=== PATIENT | female | born 1990 | race African-American/Black ===

== ENCOUNTER 2016-07-09 05:37 | Inpatient (IN) | payer MEDICAID ==
[2016-07-09] VITALS (45 sets, daily range): BP systolic 119–153; BP diastolic 70–109; PULSE 62–106; RESP 16–18; TEMP 97.8–98.3; O2SAT 99–100
[~2016-07-09 05:37] MED LIST: DOXY100T PO
[2016-07-09 06:38] LABS: AUTOMATED NEUTROPHIL # 9.4 TH/MM3 (1.8-7.7); BASOPHIL % 0.3 % (0.0-2.0); EOSINOPHIL # 0.3 TH/MM3 (0-0.4); HEMATOCRIT 36.8 % (35.0-46.0); HEMO FLAGS DIFF FINAL; LYMPH % 18.1 % (9.0-44.0); LYMPHOCYTE # 2.4 TH/MM3 (1.0-4.8); MEAN CELL VOLUME 88.2 FL (80.0-100.0); MEAN CORPUSCULAR HEMOGLOBIN 29.5 PG (27.0-34.0); MEAN CORPUSCULAR HGB CONC 33.4 % (32.0-36.0); MONO % 8.7 % (0.0-8.0); NEUT % 70.9 % (16.0-70.0); PLATELET COUNT 192 TH/MM3 (150-450); RED BLOOD COUNT 4.18 MIL/MM3 (4.00-5.30); RED CELL DISTRIBUTION WIDTH 15.5 % (11.6-17.2); WHITE BLOOD COUNT 13.3 TH/MM3 (4.0-11.0)
[2016-07-09 06:49] LABS: BLOOD, URINE MOD (NEG); GLUCOSE,URINE NEG (NEG); KETONE, URINE NEG (NEG); MUCUS URINE FEW /lpf (OCC); NITRITE,URINE NEG (NEG); SQUAMOUS EPITHELIAL CELL URINE 2 /hpf (0-5); URINE COLOR YELLOW (YELLW/STRAW)
[2016-07-09 06:51] LABS: COMMENT (UR) CULT NOT INDICATED; CULTURE IF INDICATED CULT NOT INDICATED
[2016-07-09 07:02] LABS: AMPHETAMINE, URINE NEG (NEG); BARBITURATES, URINE NEG (NEG); COCAINE, URINE NEG (NEG)
[2016-07-09 07:14] LABS: RUBELLA IGG ANTIBODY 110.6 IU/mL (10.0-500.0); RUBELLA STATUS IMMUNE (IMMUNE)
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
[2016-07-09] MEDS ORDERED: LACTATED RINGER'S 1000 ML INJ 1,000 ML IV PRN (08:25)
[2016-07-09] MEDS ORDERED: OXYTOCIN 30 UNITS-500ML PREMIX 500 ML IV ONE ×2 (08:30→19:15)
[2016-07-09] MEDS ORDERED: SODIUM CHLORID 0.9% 500 ML INJ 500 ML IV PRN (08:30)
[2016-07-09] MEDS ORDERED: LIDOCAINE HCL 1% 50 ML VIAL I-DERMAL PRN (08:30)
[2016-07-09] MEDS ORDERED: CITRIC ACID-SODIUM CITRATE LIQ 30 ML UDC PO SCH (08:30)
[2016-07-09] MEDS ORDERED: LIDOCAINE HCL 1% 50 ML VIAL INFIL PRN (08:30)
[2016-07-09] MEDS ORDERED: MINERAL OIL 10 ML VIAL TOPICAL PRN (08:30)
[2016-07-09 08:36] LABS: CHLAMYDIA PCR NOT DETECTED (NOT DETECT); NEISSERIA PCR NOT DETECTED (NOT DETECT)
[2016-07-09] MEDS ORDERED: SODIUM CHLOR 0.9% 1000 ML INJ 1,000 ML IV PRN (08:45)
[2016-07-09] MEDS: LACTATED RINGER'S 1000 ML INJ 1,000 ML IV SCH ×2 (10:50→14:16)
[2016-07-09] MEDS ORDERED: AMPICILLIN INJ 1,000 MG in SODIUM CHLORIDE 0.9% INJ 100 ML IV SCH (12:00)
--- NOTE | 2016-07-09 12:37 | PD.OB.ANTE ---
Subjective Interval History 25 yo @ 35w2d by today's US. No care this . Patient reportedly had an US while in intermediate earlier in the , but has no information or documentation. She presented early this AM with c/o spotting/ vaginal bleeding. She was found to be 4-5cm dilated, membranes intact. Only occasional UC noted. FHT was reassuring. Upon admission for PTL, a beside US was performed that noted absence of brain matter and hydrocephaly. Otherwise a normal US. A formal US was obtained from Diagnostics. 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 3VC, anterior placenta without previa. EFW 2655g, BPP 8/8 with MAL 15.2cm. 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 Bradford. 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 She had a normal , [id number] of 8/9. The baby lived 6 months after being transferred to Hospice. She was counselled this morning about the findings. The patient does not desire the /baby. She desired but did not obtain a . She was planning on giving this child up for adoption or to the FOB, whom is not involved at this time. She expresses desire to not have resuscitation or c- section for delivery. A formal viewing, reading, diagnosis has not been done at this time. NICU was consulted and the case d/w TYRESE Joaquin from [facility] in [place] via the phone. A MRI would be needed. At this time we do not have a definitive diagnosis and will need to proceed with standard /labor care. She is not in labor at this time with minimal cervical change management consultant 8 hours, and rare UC. There has been an occasional variable but otherwise CAT I tracing. We will continue monitoring for active labor at this time, but obviously at 35 weeks she will not be induced/augmented unless indicated. She will have continuous monitoring in labor and a recommended as indicated. Full resuscitation will be indicated at the time of delivery and NICU will be present. The patient at this time has refused transfer to [facility]. Antepartum ROS: Reports: Vaginal bleeding (blood tinged mucous only noted.), movement normal, Denies: New complaints, Loss of fluid, Contractions (denies contractions at this time.) Objective Vital Signs Vital Signs Date Time Temp Pulse Resp B/P Pulse Ox O2 Delivery O2 Flow Rate FiO2 07/09/16 11:40 71 125/70 07/09/16 11:39 18 07/09/16 11:23 97.9 07/09/16 10:47 63 133/74 07/09/16 10:21 16 07/09/16 10:19 64 133/74 07/09/16 09:12 62 119/81 07/09/16 09:11 18 07/09/16 09:09 97.8 Lab & Micro Results Test 07/09/16 06:00 White Blood Count 13.3 TH/MM3 Red Blood Count 4.18 MIL/MM3 Hemoglobin 12.3 GM/DL Hematocrit 36.8 % Mean Corpuscular Volume 88.2 FL Mean Corpuscular Hemoglobin 29.5 PG Mean Corpuscular Hemoglobin 33.4 % Concent Red Cell Distribution Width 15.5 % Platelet Count 192 TH/MM3 Mean Platelet Volume 11.7 FL Neutrophils (%) (Auto) 70.9 % Lymphocytes (%) (Auto) 18.1 % Monocytes (%) (Auto) 8.7 % Eosinophils (%) (Auto) 2.0 % Basophils (%) (Auto) 0.3 % Neutrophils # (Auto) 9.4 TH/MM3 Lymphocytes # (Auto) 2.4 TH/MM3 Monocytes # (Auto) 1.2 TH/MM3 Eosinophils # (Auto) 0.3 TH/MM3 Basophils # (Auto) 0.0 TH/MM3 CBC Comment DIFF FINAL Differential Comment Urine Color YELLOW Urine Turbidity CLEAR Urine pH 6.0 Urine Specific [place] 1.027 Urine Protein TRACE mg/dL Urine Glucose (UA) NEG mg/dL Urine Ketones NEG mg/dL Urine Occult Blood MOD Urine Nitrite NEG Urine Bilirubin NEG Urine Urobilinogen LESS THAN 2.0 MG/DL Urine Leukocyte Esterase SMALL Urine RBC 3 /hpf Urine WBC 3 /hpf Urine Squamous Epithelial 2 /hpf Cells Urine Mucus FEW /lpf Microscopic Urinalysis Comment CULT NOT INDICATED Urine Opiates Screen NEG Urine Barbiturates Screen NEG Urine Amphetamines Screen NEG Urine Benzodiazepines Screen NEG Urine Cocaine Screen NEG Urine Cannabinoids Screen NEG Chlamydia trachomatis DNA NOT DETECTED (PCR) HIV (1&2) Antibody NEGATIVE Neisseria gonorrhoeae DNA NOT DETECTED (PCR) Rubella Immunity Screen IMMUNE Rubella Antibody, Quantitative 110.6 IU/mL Group B Streptococcus (PCR) NEGATIVE Blood Type O POSITIVE Band and Hold Date/Time Procedure Status Source Growth 07/09/16 06:00 Group B Streptococcus Screen Received Genital Genital Region Pending 07/09/16 06:00 Cancelled Genital Vaginal Physical Exam GENERAL: Well-nourished, well-developed patient. CARDIOVASCULAR: Regular rate RESPIRATORY: . No accessory muscle use. ABDOMEN/GI: Abdomen soft, non-tender. Gravid GENITOURINARY: External Genitalia: intact and normal in appearance SVE 5/80/-2, intact, cephalic minimal change from Dr. Luther exam earlier at 6 : 45am FHT's: Baseline: 135 Reactive: +accelerations Variability: mod Decels: occasional variable with return to baseline. TOCO: UC irregular q 8-30 min EXTREMITIES: No cyanosis or edema, non-tender, without signs of DVT. Assessment and Plan Assessment and Plan 35w2d 1. PTL Minimal cervical change management consultant the past 8 hours with only irregular/occasional UC. Continue as antepartum patient with PTL. GBS negative. 2. No care labs WNL at this time 3. 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 Discussed case with Dr. Gracia from [facility] brain MRI ordered, D/w Dr. Jax Ferreira from radiology (via Dr. Mitchell) NICU consulted and counseled patient on resuscitation at time of delivery when in labor Patient refuses transfer to [facility] for any further care/management. 4. Undesired /child Will need psychiatric social worker supervisor consultation in AM Michelle Crawford MD Jul 09, 2016 12:37
--- NOTE | 2016-07-09 14:36 | PD.LABORPN ---
Subjective Subjective Patient returned from MRI. Awaiting results. Patient reports increased in UC. Objective Vital Signs Vital Signs Date Time Temp Pulse Resp B/P Pulse Ox O2 Delivery O2 Flow Rate FiO2 07/09/16 12:55 68 07/09/16 12:54 18 07/09/16 12:47 133/89 07/09/16 11:23 97.9 Objective Pelvic Exam: SVE 5-6/80-90%/-2 per RN TOCO: UC irregular q 4-8 min FHT's: Baseline: [-] Reactive: +accelerations to 160 Variability: mod Decels: occasional variable with UC Assessment/Plan Assessment and Plan 35w2d PTL - increased in UC, minimal change, some effacement. Will manage expectantly GBS negative Patient will refuse a for delivery She does not desire resuscitation efforts, NICU will be present for delivery and at this time will resuscitate initially. Awaiting MRI results of brain for diagnostic evaluation. 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 Also prior child with holoprosencephaly who in Hospice after 6mo. Patient was told is was genetic. Michelle Crawford MD Jul 09, 2016 14:36
[2016-07-09] MEDS ORDERED: fentaNYL 2MCG-BUPIV 0.125% INJ 100 ML ONE (14:38)
[2016-07-09] MEDS ORDERED: ePHEDrine/NS 25 MG/5 ML SYR ONE (14:38)
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
[2016-07-09] MEDS ORDERED: ONDANSETRON ODT 4 MG TAB PO PRN (15:30)
[2016-07-09] MEDS ORDERED: ZOLPIDEM TARTRATE 5 MG TAB PO PRN (15:30)
[2016-07-09] MEDS ORDERED: DOCUSATE SODIUM 50 MG/SENNA 8.6 MG TAB PO PRN (15:30)
[2016-07-09] MEDS ORDERED: WITCH HAZEL 50%/GLYCERIN 12.5% 40 PAD JAR TOPICAL PRN (15:30)
[2016-07-09] MEDS ORDERED: ALUMINUM/MAGNESIUM/SIMETH 30 ML CUP PO PRN (15:30)
[2016-07-09] MEDS ORDERED: BENZOCAINE 20% TOPICAL SPRAY 60 ML CAN TOPICAL PRN (15:30)
[2016-07-09] MEDS ORDERED: SODIUM CHLORIDE 0.9% FLUSH 10 ML FLUSH IV FLUSH PRN (15:30)
[2016-07-09] MEDS ORDERED: ACETAMINOPHEN 325 MG TAB PO PRN (15:30)
[2016-07-09] MEDS ORDERED: oxyCODONE/ACETAMINOPHEN 5 MG/325 MG TAB PO PRN (15:30)
--- NOTE | 2016-07-09 15:48 | PD.OB.DELI ---
Delivery Date: Jul 09, 2016 Anesthesia: None Episiotomy: None Vaginal Delivery: Normal Presentation: Occiput anterior Nuchal Cord: None : Female Placenta: Spontaneous delivery Laceration: No lacerations (25 yo @ 35w2d presented with PTL. No care. 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 Prior delivery with same diagnosis. over intact perinium. NICU present. Placenta spontaneous and intact, small with some calcifications. Sent to pathology. EBL 150ml.) Michelle Crawford MD Jul 09, 2016 15:48
[2016-07-09] MEDS ORDERED: MEASLES, MUMPS, RUBELLA VACCINE 0.5 ML VIAL SQ ONE (16:00)
[2016-07-09] MEDS ORDERED: DIPHTH/TETANUS/ACEL PERTUSSIS (BOOSTER) 0.5 ML VIAL/PFS IM ONE (16:00)
[2016-07-09] MEDS: IBUPROFEN 600 MG TAB PO PRN (16:03)
[2016-07-09] MEDS: oxyCODONE/ACETAMINOPHEN 5 MG/325 MG TAB PO PRN ×2 (16:56→20:56)
[2016-07-09] MEDS ORDERED: OXYTOCIN 30 UNITS-500ML PREMIX 500 ML ONE (18:24)
[2016-07-09] MEDS ORDERED: SODIUM CHLORIDE 0.9% FLUSH 10 ML FLUSH IV FLUSH SCH (21:00)
[2016-07-10] VITALS (9 sets, daily range): BP systolic 128–144; BP diastolic 69–111; PULSE 66–80; RESP 17–18; TEMP 98–98.3
--- NOTE | 2016-07-10 09:22 | HHI.OB ---
Subjective Post Day: 1 Remarks Ms. Weiner is a 25 yo who is PPD 1 from of with holoprosencephaly (07/09 at 1513). Patient with persistent SBP in 140's; otherwise stable VS. Patient awoken from sleep; her responses were limited: reports some vaginal bleeding. Patient does not report significant pain. Unclear whether patient has yet ambulated. Objective Vitals/I&O Vital Signs Date Time Temp Pulse Resp B/P Pulse Ox O2 Delivery O2 Flow Rate FiO2 07/10/16 08:53 66 144/83 07/10/16 08:53 17 07/10/16 04:30 98.3 18 07/10/16 04:00 98.3 07/10/16 04:00 67 18 128/81 07/10/16 03:59 78 144/111 07/09/16 23:21 98.3 18 07/09/16 23:18 71 142/79 07/09/16 19:45 18 07/09/16 19:45 70 143/75 07/09/16 18:38 78 153/85 07/09/16 18:00 75 130/73 07/09/16 18:00 98.0 07/09/16 17:59 16 07/09/16 17:04 18 07/09/16 17:01 90 138/88 07/09/16 16:56 87 139/82 07/09/16 16:50 18 144/91 07/09/16 16:45 72 07/09/16 16:40 70 18 144/89 07/09/16 16:30 18 07/09/16 16:22 67 139/83 07/09/16 16:16 75 136/92 07/09/16 16:15 97.9 07/09/16 16:15 18 07/09/16 16:00 18 07/09/16 16:00 74 133/84 07/09/16 15:45 69 144/79 07/09/16 15:45 18 07/09/16 15:30 82 151/81 07/09/16 15:00 106 07/09/16 15:00 100 07/09/16 14:55 100 07/09/16 14:55 70 07/09/16 14:50 88 07/09/16 14:50 99 07/09/16 14:46 68 123/109 07/09/16 14:45 76 07/09/16 14:45 100 07/09/16 12:55 68 07/09/16 12:54 18 07/09/16 12:50 80 07/09/16 12:47 86 133/89 07/09/16 12:45 76 07/09/16 12:35 69 07/09/16 12:30 64 07/09/16 12:25 68 07/09/16 12:20 67 07/09/16 12:15 70 07/09/16 12:10 72 07/09/16 12:05 71 07/09/16 11:40 71 125/70 07/09/16 11:39 18 07/09/16 11:23 97.9 07/09/16 10:47 63 133/74 07/09/16 10:21 16 07/09/16 10:19 64 133/74 Objective Remarks GENERAL: Well-nourished, well-developed patient. CARDIOVASCULAR: Regular rate and rhythm without murmurs. RESPIRATORY: CTAB, normal rate ABDOMEN/GI: Abdomen soft, non-tender. Fundus: Firm, non-tender at umbilicus. GENITOURINARY: Light to moderate bleeding. EXTREMITIES: No cyanosis or edema, non-tender, without signs of DVT. Medications and IVs Current Medications Medications (Trade) Dose Ordered Sig/Bijan Route Start Time Stop Time Status Last Admin (NS Flush) 2 ml BID IV FLUSH 07/09/16 21:00 (NS Flush) 2 ml UNSCH PRN IV FLUSH 07/09/16 15:30 (Tylenol) 650 mg Q4H PRN PO 07/09/16 15:30 (Motrin) 600 mg Q6H PRN PO 07/09/16 15:30 07/09/16 16:03 (Percocet 5-325 Mg) 1 tab Q4H PRN PO 07/09/16 15:30 (Percocet 5-325 Mg) 2 tab Q4H PRN PO 07/09/16 15:30 07/09/16 20:56 (Americaine 20% Top Spr) 1 spray Q4H PRN TOPICAL 07/09/16 15:30 (Tucks Pads) 1 applic QID PRN TOPICAL 07/09/16 15:30 (Park-Colace) 2 tab Q12H PRN PO 07/09/16 15:30 07/09/16 20:56 (Ambien) 5 mg HS PRN PO 07/09/16 15:30 (Mag-Al Plus Susp Liq) 15 ml Q8H PRN PO 07/09/16 15:30 (Zofran Odt) 4 mg Q6H PRN PO 07/09/16 15:30 Assessment/Plan Problem List: (1) care and examination Assessment and Plan 25 yo who is PPD 1 from of with holoprosencephaly (07/09 at 1513 ). Routine post- care -Motrin/Percocet PRN for pain -Encourage ambulation -Continue to monitor VS -Pelvic rest PIH Impression: SBP in 140's -Continue to monitor Holoprosencephaly -CM consultation for resources regarding her infant's diagnosis. Akhil Shah MD R2 Jul 10, 2016 09:22
[2016-07-10 09:38] LABS: RAPID PLASMA REAGIN SCREEN NON-REACTIVE (NON-REACTVE)
[2016-07-10] MEDS: oxyCODONE/ACETAMINOPHEN 5 MG/325 MG TAB PO PRN ×2 (10:53→15:49)
[2016-07-10] MEDS: IBUPROFEN 600 MG TAB PO PRN (10:53)
--- NOTE | 2016-07-10 16:38 | HHI.DCPOC ---
Discharge Care Plan Diagnosis: (1) care and examination Report Symptoms to Your Doctor -Temperate above 100.5 degrees -Unusual pain or calf pain -Increased vaginal bleeding -Painful or difficulty urinating -Feelings of extreme sadness or anxiety after 2 weeks Goals to Promote Your Health * To prevent worsening of your condition and complications * To maintain your health at the optimal level Directions to Meet Your Goals Take your medications as prescribed Follow your dietary instruction Follow activity as directed Ensure plenty of rest for recovery Drink fluids for hydration Keep your appointments as scheduled Take your immunizations and boosters as scheduled If your symptoms worsen call your PCP, if no PCP go to Urgent Care Center or Emergency Room Smoking is Dangerous to Your Health. Avoid second hand smoke Call the 24-hour crisis hotline for domestic abuse at Akhil Shah MD R2 Jul 10, 2016 16:38
[2016-07-10] MEDS ORDERED: SENN1TAB PO (16:39)
[2016-07-10] MEDS ORDERED: IBUP-232 PO (16:39)
[2016-07-10] MEDS ORDERED: OXYC1TAB63 PO (17:05)
[2016-07-13 08:25] LABS: BATH SALTS (MDPV) UR NEG (NEG); ECSTASY (MDMA) UR NEG (NEG); HEROIN (6-ACETYLMORPHINE) UR NEG (NEG); K2 SPICE UR NEG (NEG); OBMETHADONE UR NEG (NEG); PHENCYCLIDINE URINE NEG (NEG)
[2016-07-13 08:26] LABS: GABAPENTIN UR NEG (NEG); HYDROMORPHONE U NEG (NEG); OXYCODONE (PERCODAN) NEG (NEG)
== END 2016-07-10 20:42 | disposition home or self-care (01) | DRG 775 ==
LOC: HOBED 05:37 → H2EB 06:57
PROVIDERS: ADMIT Obstetrics & Gynecology Maternal & Fetal Medicine; ATTEND Obstetrics & Gynecology Maternal & Fetal Medicine
PROC: 10E0XZZ Delivery of Products of Conception, External Approach (ICD-10-PCS; principal; 2016-07-09)
PROC: 10907ZC Drainage of Amniotic Fluid, Therapeutic from Products of Conception, Via Natural or Artificial Opening (ICD-10-PCS; 2016-07-09)
DX: O60.14X1 Preterm labor third trimester with preterm delivery third trimester, fetus 1 (principal); O13.4 Gestational [pregnancy-induced] hypertension without significant proteinuria, complicating childbirth; Z3A.35 35 weeks gestation of pregnancy; Z37.0 Single live birth; Z72.0 Tobacco use
CPT/HCPCS: 59025; 72195; 76815; 76816; 76819; 80074; 80307; 80348; 81001; 85025; 86592; 86703; 86762; 87081; 87150; 87491; 87591; 88307; G0480; G0481; J0290; J2590; J3010; J7120

== ENCOUNTER 2016-07-13 18:47 | Emergency (ER) | payer MEDICAID, OTHER ==
[~2016-07-13] VITALS: Ht 172.7 cm; Wt 67.0 kg
[~2016-07-13 18:47] MED LIST changes: -DOXY100T PO; +IBUP-232 PO; +OXYC1TAB63 PO; +SENN1TAB PO
[2016-07-13 18:50] VITALS: BP 156/93; PULSE 76; RESP 20; TEMP 98.4; O2SAT 98
[2016-07-13] MEDS ORDERED: IBUP-232 PO (22:09)
--- NOTE | 2016-07-13 22:13 | PD ---
HPI Chief Complaint: Abdominal Pain Time Seen by Provider: 21:38 Travel History International Travel<30 days: No Contact w/Intl Traveler<30days: No Traveled to known affect area: No History of Present Illness HPI Patient is a 25-year-old female who is , presents to ER with c/o of breast engorgement. Patient reports that she delivered her baby on July 09, [address] [facility] hospitalist, reports that for the past 3 days, her breast appeared engorged. Patient reports that her breasts hurt as they are engorged. Patient reports that she was discharged to home with a prescription for ibuprofen as well as Percocet for pain, patient requesting for another prescription for ibuprofen for pain. Patient with no abdominal pain this time, reports that she intermittently has lower abdominal cramping. Reports that this is not bothering her and reports that she has had similar symptoms when she had her 2 previous pregnancies. Patient reports no vaginal bleeding, discharge, pain, denies any nausea or vomiting. Patient's only complaints are breast engorgement, reports that she breast-fed her other babies so she didn't have a problem with her breast in the past. Reports that she does not plan on this baby. PFSH Past Medical History Medical History: Denies Significant Hx Hx Anticoagulant Therapy: No Asthma: Yes (childhood) Cardiovascular Problems: No Chemotherapy: No Cerebrovascular Accident: No Diabetes: No Diminished Hearing: No Reproductive: Yes (POSITIVE FOR CHLAMYDIA) Respiratory: No ?: Not LMP: 3 days post delivery Menopausal: No : 3 Para: 3 Miscarriage: 0 : 0 Dilation and Curettage (D&C): Yes Past Surgical History Surgical History: No Previous Surgery Section: No Hysterectomy: No Social History Alcohol Use: No Tobacco Use: No Substance Use: No Allergies-Medications (Allergen,Severity, Reaction): Coded Allergies: No Known Allergies (Unverified , 07/13/16) Reported Meds & Prescriptions Reported Meds & Active Scripts Active Oxycodone-Acetaminophen 5-325 mg Tab 1 Tab PO Q4H PRN Senna Plus 8.6-50 mg (Sennosides-Docusate Sodium) 1 Tab Tab 2 Tab PO Q12H PRN Ibuprofen 600 Mg Tab 600 Mg PO Q6H PRN Review of Systems General / Constitutional: No: Fever Eyes: No: Visual changes HENT: No: Headaches Cardiovascular: Positive: Other ("breast engorgment"), No: Chest Pain or Discomfort Respiratory: No: Shortness of Breath Gastrointestinal: No: Abdominal Pain Genitourinary: No: Dysuria Musculoskeletal: No: Pain Skin: No Rash Neurologic: No: Weakness Psychiatric: No: Depression Endocrine: No: Polydipsia Hematologic/Lymphatic: No: Easy Bruising Physical Exam Narrative GENERAL: nad, nontoxic SKIN: Focused skin assessment warm/dry. HEAD: Atraumatic. Normocephalic. EYES: Pupils equal and round. No scleral icterus. No injection or drainage. ENT: No nasal bleeding or discharge. Mucous membranes pink and moist. NECK: Trachea midline. No JVD. CARDIOVASCULAR: Regular rate and rhythm. No murmur appreciated. B/L breast engorgement RESPIRATORY: No accessory muscle use. Clear to auscultation. Breath sounds equal bilaterally. GASTROINTESTINAL: Abdomen soft, non-tender, nondistended. MUSCULOSKELETAL: No obvious deformities. No clubbing. No cyanosis. No edema. NEUROLOGICAL: Awake and alert. No obvious cranial nerve deficits. Motor grossly within normal limits. Normal speech. PSYCHIATRIC: Appropriate mood and affect; insight and judgment normal. Data Data Last Documented VS Vital Signs Date Time Temp Pulse Resp B/P Pulse Ox O2 Delivery O2 Flow Rate FiO2 07/13/16 18:50 98.4 76 20 156/93 98 Room Air [facility] Medical Decision Making Medical Screen Exam Complete: Yes Emergency Medical Condition: Yes Interpretation(s) Vital Signs Date Time Temp Pulse Resp B/P Pulse Ox O2 Delivery O2 Flow Rate FiO2 07/13/16 18:50 98.4 76 20 156/93 98 Room Air Differential Diagnosis breast engorgement Narrative Course Patient is a 25-year-old female who is status post breast engorgement. Patient delivered her baby on July 09, 2016, reports that she has noticed increased breast engorgement over the past 3 days. Patient reports that she does not plan to breast feed her baby, that today, her breast feel full and or painful. Patient here for evaluation of breast engorgement. Patient with no abdominal pain or cramping at this time, denies any vaginal bleeding or charge. Patient requesting a prescription for ibuprofen. On evaluation, patient is nontoxic. Patient with no fevers or chills, does have bilateral breast engorgement, most likely due to symptoms. Patient with no abdominal pain, abdomen is soft, nontender, nondistended, no peritoneal signs. Discussed need for her to follow-up with her [employer], she will return to emergency room as needed. Diagnosis Primary Impression: Breast engorgement, obstetric, condition Patient Instructions: General Instructions Additional Instructions: Please follow-up with [employer] [facility] in 2-3 days Wear a tightfitting bra off Return to emergency room as needed Med/Other Pt SpecificInfo: Prescription(s) given Scripts Ibuprofen 600 Mg Tlk600 Mg PO Q6H PRN (Pain/Inflammation) #40 TAB Ref 0 Prov:Khadijah Beth DO 07/13/16 Disposition: 01 DISCHARGE HOME Condition: Stable Khadijah Beth DO Jul 13, 2016 22:13
== END 2016-07-13 22:19 | disposition home or self-care (01) ==
LOC: NEPD 18:47
DX: O92.79 Other disorders of lactation (principal)
CPT/HCPCS: 99283